=== PATIENT | male | born 1985 | race African-American/Black ===

== ENCOUNTER 2023-09-19 14:58 | Emergency (ER) | payer SELFPAY ==
[~2023-09-19] VITALS: Ht 165.1 cm; Wt 79.4 kg
[2023-09-19 15:00] VITALS: BP_SYST 143; PULSE 88; RESP 18; TEMP 97.8; O2SAT 98
[2023-09-19] MEDS ORDERED: CLIN-142 PO (15:56)
== END 2023-09-19 16:02 | disposition home or self-care (01) ==
LOC: SED 14:58
DX: L03.811 Cellulitis of head [any part, except face] (principal)
CPT/HCPCS: 99283